=== PATIENT | female | born 1940 | race Caucasian/White ===

== ENCOUNTER 2023-12-01 11:03 | Inpatient (IN) | payer OTHER ==
[~2023-12-01] VITALS: Ht 165.1 cm; Wt 87.2 kg
[~2023-12-01 11:03] MED LIST: Zofran4 MG PO
[2023-12-01] MEDS ORDERED: Diltiazem HCl 5 MG / ML 5ML Vial IV ONE (11:20)
[2023-12-01] MEDS ORDERED: NS 1,000 ML IV SCH (11:25)
[2023-12-01 11:38] LABS: BASOPHILS ABSOLUTE AUTO 0.02 K/mm3 (0.00-0.23); BASOPHILS PERCENT AUTO 0 % (0-2); EOSINOPHILS ABSOLUTE AUTO 0.05 K/mm3 (0.00-0.68); EOSINOPHILS PERCENT AUTO 1 % (0-6); Hematocrit 42.2 % (33.0-51.0); Hemoglobin 13.8 g/dL (11.5-16.0); IMMATURE GRAN ABSOLUTE AUTO 0.03 K/mm3 (0.00-0.10); IMMATURE GRAN PERCENT AUTO 0 % (0-1); LYMPHOCYTES ABSOLUTE AUTO 0.79 K/mm3 (0.84-5.20); LYMPHOCYTES PERCENT AUTO 8 % (21-46); MONOCYTES ABSOLUTE AUTO 0.65 K/mm3 (0.16-1.47); MONOCYTES PERCENT AUTO 7 % (4-13); Mean Corpuscular HGB 28.9 pg (26.0-34.0); Mean Corpuscular HGB Conc 32.7 g/dL (31.5-36.5); Mean Corpuscular Volume 88 fL (80-100); Mean Platelet Volume 10.9 fL (9.1-12.4); NEUTROPHILS ABSOLUTE AUTO 8.08 K/mm3 (1.96-9.15); NEUTROPHILS PERCENT AUTO 84 % (41-73); Platelet Count 182 K/mm3 (150-400); RDW Coefficient Variation 13.2 % (11.7-14.2); RDW Standard Deviation 42.9 fL (35.1-46.3); Red Blood Cell Count 4.78 M/mm3 (3.80-5.20); White Blood Cell Count 9.62 K/mm3 (4.00-11.30)
[2023-12-01 12:06] LABS: Bun/Creatinine Ratio 16.3 (12.0-20.0); Calcium, Blood 9.4 mg/dL (8.5-10.1); Creatinine, Blood 0.92 mg/dL (0.40-1.00); Free Thyroxine 0.85 ng/dL (0.70-1.60); Magnesium, Blood 2.2 mg/dL (1.6-2.4); Potassium, Blood 4.5 mmol/L (3.5-5.5); Thyroid Stimulating Hormone 6.31 uIU/mL (0.360-4.800)
[2023-12-01] MEDS ORDERED: FLU VACC TS2024-25(6MOS UP)/PF 45 MCG/0.5 ML SYRINGE IM SCH (15:35)
[2023-12-01] MEDS ORDERED: Acetaminophen 500 MG Tab PO PRN (15:35)
[2023-12-01] MEDS ORDERED: Polyethylene Glycol 3350 17 gm PO PRN (15:40)
[2023-12-01] MEDS ORDERED: Metoprolol Succinate 25 MG TABCR PO SCH (16:00)
[2023-12-01] MEDS ORDERED: Apixaban 5 MG Tab PO SCH (16:00)
[2023-12-01] MEDS ORDERED: Furosemide 10 MG / ML 2ML Vial IV ONE (16:00)
[2023-12-01 20:25] VITALS: BP 146/83
[2023-12-01] MEDS ORDERED: Docusate Sodium/Senna 1 Tab PO SCH (21:00)
[2023-12-01 23:11] VITALS: BP 133/64
[2023-12-02] VITALS (9 sets, daily range): BP systolic 92–158; BP diastolic 64–104
[2023-12-02 04:35] LABS: Hematocrit 39.4 % (33.0-51.0); Mean Corpuscular Volume 88 fL (80-100); Mean Platelet Volume 10.7 fL (9.1-12.4); Platelet Count 163 K/mm3 (150-400); RDW Coefficient Variation 13.2 % (11.7-14.2); RDW Standard Deviation 42.4 fL (35.1-46.3); Red Blood Cell Count 4.49 M/mm3 (3.80-5.20); White Blood Cell Count 7.94 K/mm3 (4.00-11.30)
[2023-12-02 04:52] LABS: Albumin, Blood 3.4 g/dL (3.4-5.0); Anion Gap 13 mmol/L (3-11); Blood Urea Nitrogen 14 mg/dL (8-24); Bun/Creatinine Ratio 15.1 (12.0-20.0); CO2, Blood 24 mmol/L (21-32); Calcium, Blood 8.9 mg/dL (8.5-10.1); Chloride, Blood 106 mmol/L (98-108); Creatinine, Blood 0.93 mg/dL (0.40-1.00); Glomerular Filtration Rate 61 (60-); Glucose, Blood 110 mg/dL (70-99); Phosphorus, Blood 3.3 mg/dL (2.5-4.9); Potassium, Blood 3.9 mmol/L (3.5-5.5); Sodium, Blood 139 mmol/L (136-145)
--- NOTE | 2023-12-02 05:15 | NUR ---
SHIFT SUMMARY ASSUMED CARE OF PT AT 1999. PT FROM ED ON A DILTIAZEM GTTS AT 5MG/HR RUNNING AFIB ON THE MONITOR. PT A&O4 AND COOPERATIVE IN COMPLETING ADMISSION QUESTIONS. PT STATES SHE ONLY TAKE OTC MEDS AND HASN'T SEEN A PCP IN MANY YEARS. NEEDED TO RE-EDUCATE THE PT ON USING CALL LIGHT WHEN NEEDING TO GET OUT OF BED, PT STATES OK AND GETS UP AGAIN WITHOUT CALLLING FOR ASSISTANCE. DILT GTTS STOPPED WHEN PT'S HR MAINTAINED BELOW 100; HR RANGING FOR 90S-60S STILL IN AFIB. PT BED IN LOWEST POSITION, BED ALARM ON AND CALL LIGHT WITHIN REACH.
[2023-12-02] MEDS ORDERED: dilTIAZem HCL 30 MG TAB PO PRN (07:55)
--- NOTE | 2023-12-02 08:04 | NUR ---
DR. GAN NOTIFIED OF PATIENT'S INCREASED HR THIS MORNING. ORDERS GIVEN
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
[2023-12-03] VITALS (8 sets, daily range): BP systolic 118–162; BP diastolic 84–111
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
[2023-12-03] MEDS ORDERED: Metoprolol Succinate 25 MG TABCR PO STA (11:13)
[2023-12-03] MEDS ORDERED: Furosemide 20 MG Tab PO SCH (12:00)
--- NOTE | 2023-12-03 12:47 | NUR ---
ASSUMPTION OF CARE PT ALERT AND ORIENTED, SHE IS FORGETFUL AT TIMES, COOPERATIVE TO CARE, SBA FOR WEAKNESS. SKIN INTACT, NO BREAKDOWN NOTED. PIV OF RIGHT FA, S/L. HR IN THE 80'S-90'S, AFIB, SBP IN THE 150'S, MEDICATING PER EMAR, SHE DENIES CP/PRESSURE, NUMB/TINGLING. PT WITH SOB THIS AM, O2 95-100% ON RA. +BS. NO TENDERNESS. PT WITH GENRALIZED WEAKNESS, SBA. SHE IS ABLE TO EXPRESS NEEDS. PT DOES NOT HAVE ANY QUESTIONS OR CONCERNS AT THIS TIME. WILL MONITOR PT.
--- NOTE | 2023-12-03 18:16 | NUR ---
SHIFT SUMMARY: PT ALERT AND ORIENTED, COOPERARATIVE TO CARE. HR IN 90'S-100S, SBP 150'S, MEDICATING PER EMAR. SOB INCREASING, PROVIDER NOTIFIED LASIX ORDERED AND GIVEN. PROVIDER AT BEDSIDE THIS AFTERNOON TO DISCUSS PLAN OF CARE WITH PT. PTS FAMILY AT BEDSIDE AND ON THE PHONE WITH PROVIDER AT BEDSIDE. ANTICIPATING ATLEAST ONE MORE NIGHTS STAY TO MONITOR MEDICATIONS. PT AGREEABLE TO PLAN. NO ACUTE CHANGES THROUGH SHIFT. WILL CONTIUE TO MONITOR AND REPORT TO CARPET INSPECTOR FINISHED RN.
[2023-12-03] MEDS ORDERED: Calcium Carbonate 500 MG Tab Chew PO PRN (20:50)
[2023-12-04 03:53] VITALS: BP 155/109
[2023-12-04 04:22] LABS: Hematocrit 38.7 % (33.0-51.0); Hemoglobin 13.2 g/dL (11.5-16.0); Mean Corpuscular HGB 28.9 pg (26.0-34.0); Mean Corpuscular HGB Conc 34.1 g/dL (31.5-36.5); Mean Corpuscular Volume 85 fL (80-100); Mean Platelet Volume 11.1 fL (9.1-12.4); Platelet Count 176 K/mm3 (150-400); RDW Coefficient Variation 12.8 % (11.7-14.2); Red Blood Cell Count 4.57 M/mm3 (3.80-5.20)
[2023-12-04 04:47] LABS: Magnesium, Blood 1.7 mg/dL (1.6-2.4)
[2023-12-04 05:36] LABS: Albumin, Blood 3.7 g/dL (3.4-5.0); Anion Gap 16 mmol/L (3-11); Blood Urea Nitrogen 14 mg/dL (8-24); Bun/Creatinine Ratio 18.8 (12.0-20.0); CO2, Blood 19 mmol/L (21-32); Calcium, Blood 9.3 mg/dL (8.5-10.1); Chloride, Blood 99 mmol/L (98-108); Creatinine, Blood 0.75 mg/dL (0.40-1.00); Glomerular Filtration Rate 79 (60-); Glucose, Blood 155 mg/dL (70-99); Potassium, Blood 3.9 mmol/L (3.5-5.5); Sodium, Blood 130 mmol/L (136-145)
--- NOTE | 2023-12-04 06:22 | NUR ---
END OF SHIFT NOTE: NO ACUTE OVERNIGHT EVENTS. PT A/OX3-4 BUT WAKES UP CONFUSED AT TIMES, EASILY REORIENTED BY STAFF. PLEASANT & COOPERATIVE W/ CARE. VSS. HR 80-110'S, AFLUTTER ON TELE. SBP 120-150'S, DENIES CHEST PAIN/PRESSURE. SPO2 >90% ON RA, RESPIRATIONS EVEN & UNLABORED. AFEBRILE. UP TO VOID FREQUENTLY OVERNIGHT W/ SBA. TOLERATING PO INTAKE WELL. NO OTHER NEEDS AT THIS TIME. CALL LIGHT IN REACH, BED/CHAIR ALARM ON FOR PT SAFETY.
[2023-12-04 07:20] VITALS: BP 153/113
--- NOTE | 2023-12-04 07:38 | NUR ---
UPDATE PT AWAKE AND ALERT THIS AM SITTING UP IN THE CHAIR. PT STATES SHE FEELS GROGGY THIS AM AND DID NOT GET MUCH SLEEP. PT REQUESTS TO GET BACK IN TO BED AND SLEEP FOR A WHILE. PT MEDICATED WITH AM MEDS EARLY REQUESTED AND ASSISTED BACK TO BED. WILL CONTINUE PLAN OF CARE
[2023-12-04] MEDS ORDERED: Lisinopril 5 MG Tab PO SCH (09:00)
[2023-12-04] MEDS ORDERED: Metoprolol Succinate 25 MG TABCR PO SCH (09:00)
[2023-12-04] MEDS ORDERED: Metoprolol Succinate 50 MG TABCR PO ONE (10:20)
[2023-12-04 10:46] VITALS: BP 125/79
[2023-12-04] MEDS ORDERED: ELIQUIS5 M2 PO (15:54)
[2023-12-04] MEDS ORDERED: Calcium Carbon500 MG PO (15:55)
[2023-12-04] MEDS ORDERED: DOCUZEN 8.6-501 EACH PO (15:57)
[2023-12-04] MEDS ORDERED: FURO20 PO (15:57)
[2023-12-04] MEDS ORDERED: LISI5 PO (15:57)
[2023-12-04] MEDS ORDERED: METO50ER PO (15:58)
[2023-12-04 16:00] VITALS: BP 108/88
--- NOTE | 2023-12-04 16:10 | NUR ---
DISCHARGE PT AND DAUGHTER PROVIDED DISCHARGE INSTRUCTIONS. EDUCATED ON ALL NEW MEDICATIONS AND WEIGHT MONITORING. ALL QUESTIONS ANSWERED. PT TAKEN OUT VIA WC
[2023-12-05] MEDS ORDERED: Metoprolol Succinate 50 MG TABCR PO SCH (09:00)
== END 2023-12-04 16:41 | disposition home health service (06) | DRG 291 ==
LOC: ER 11:03 → ERHOLD 15:31 → PCU 15:31
PROVIDERS: Emergency Medicine; Internal Medicine; ADMIT Internal Medicine
DX: I11.0 Hypertensive heart disease with heart failure (principal); I50.31 Acute diastolic (congestive) heart failure; J90 Pleural effusion, not elsewhere classified; J98.11 Atelectasis; I48.91 Unspecified atrial fibrillation; G31.84 Mild cognitive impairment of uncertain or unknown etiology; I08.0 Rheumatic disorders of both mitral and aortic valves; I44.7 Left bundle-branch block, unspecified; R00.0 Tachycardia, unspecified; R06.02 Shortness of breath; I70.90 Unspecified atherosclerosis; M43.22 Fusion of spine, cervical region; Z88.1 Allergy status to other antibiotic agents; Z90.710 Acquired absence of both cervix and uterus; Z87.891 Personal history of nicotine dependence
CPT/HCPCS: 36415; 71045; 71046; 71260; 80048; 80053; 80069; 83735; 83880; 84439; 84443; 84484; 85025; 85027; 85379; 93005; 93010; 93306; 96361; 96374-59; 97110; 97116; 97161; 99285-25; A9270; J1940; J7030; Q9967

== ENCOUNTER 2023-12-05 19:53 | Emergency (ER) | payer OTHER ==
[~2023-12-05] VITALS: Ht 165.1 cm; Wt 83.5 kg
[~2023-12-05 19:53] MED LIST changes: +Calcium Carbon500 MG PO; +DOCUZEN 8.6-501 EACH PO; +ELIQUIS5 M2 PO; +FURO20 PO; +LISI5 PO; +METO50ER PO
[2023-12-05] MEDS ORDERED: Ondansetron HCl 2 MG / ML 2ML Vial IV ONE (20:10)
[2023-12-05 20:51] LABS: BASOPHILS ABSOLUTE AUTO 0.04 K/mm3 (0.00-0.23); BASOPHILS PERCENT AUTO 1 % (0-2); EOSINOPHILS ABSOLUTE AUTO 0.45 K/mm3 (0.00-0.68); EOSINOPHILS PERCENT AUTO 5 % (0-6); Hematocrit 37.6 % (33.0-51.0); IMMATURE GRAN ABSOLUTE AUTO 0.03 K/mm3 (0.00-0.10); IMMATURE GRAN PERCENT AUTO 0 % (0-1); LYMPHOCYTES ABSOLUTE AUTO 0.92 K/mm3 (0.84-5.20); LYMPHOCYTES PERCENT AUTO 11 % (21-46); MONOCYTES ABSOLUTE AUTO 0.75 K/mm3 (0.16-1.47); MONOCYTES PERCENT AUTO 9 % (4-13); Mean Corpuscular HGB 29.2 pg (26.0-34.0); Mean Corpuscular HGB Conc 34.6 g/dL (31.5-36.5); Mean Corpuscular Volume 85 fL (80-100); Mean Platelet Volume 11.2 fL (9.1-12.4); NEUTROPHILS ABSOLUTE AUTO 6.19 K/mm3 (1.96-9.15); NEUTROPHILS PERCENT AUTO 74 % (41-73); Platelet Count 165 K/mm3 (150-400); RDW Coefficient Variation 12.8 % (11.7-14.2); RDW Standard Deviation 38.4 fL (35.1-46.3); Red Blood Cell Count 4.45 M/mm3 (3.80-5.20); White Blood Cell Count 8.38 K/mm3 (4.00-11.30)
[2023-12-05 21:31] LABS: Albumin, Blood 3.4 g/dL (3.4-5.0); Albumin/Globulin Ratio 1.3 (0.8-1.8); Bilirubin, Total 0.6 mg/dL (0.1-1.0); Bun/Creatinine Ratio 19.1 (12.0-20.0); Calcium, Blood 8.8 mg/dL (8.5-10.1); Creatinine, Blood 0.84 mg/dL (0.40-1.00); Globulin, Blood 2.6 g/dL (2.2-4.0)
[2023-12-05 23:30] VITALS: BP 132/77
== END 2023-12-05 23:30 | disposition home or self-care (01) ==
LOC: ER 19:53
PROVIDERS: Student in an Organized Health Care Education/Training Program
DX: R07.89 Other chest pain (principal); R19.7 Diarrhea, unspecified; I50.9 Heart failure, unspecified; I48.91 Unspecified atrial fibrillation; Z88.8 Allergy status to other drugs, medicaments and biological substances; Z79.01 Long term (current) use of anticoagulants; Z79.899 Other long term (current) drug therapy
CPT/HCPCS: 71045; 80053; 83880; 84484; 85025; 93005; 93010; 99284-25

== ENCOUNTER → 2023-12-25 | Outpatient (CLI) | payer OTHER ==
[2023-12-26 12:23] LABS: Campylobacter Sp Not Detected (NOT DETECT); Enteroaggregative E. coli-EAEC Not Detected (NOT DETECT); Enteropathogenic E. coli-EPEC Not Detected (NOT DETECT); Enterotoxigenic E. coli-ETEC Not Detected (NOT DETECT); Plesiomonas Shigelloides Not Detected (NOT DETECT); Salmonella Sp Not Detected (NOT DETECT); Shiga Toxin-prod E. coli-STEC Not Detected (NOT DETECT); Yersinia Enterocolitica Not Detected (NOT DETECT)
[2023-12-26 12:24] LABS: Adenovirus F 40/41 Not Detected (NOT DETECT); Astrovirus Not Detected (NOT DETECT); Cryptosporidium Not Detected (NOT DETECT); Cyclospora Cayetanensis Not Detected (NOT DETECT); E. Coli O157 Not Detected (NOT DETECT); Entamoeba Histolytica Not Detected (NOT DETECT); Giardia Lamblia Not Detected (NOT DETECT); Norovirus GI/GII Not Detected (NOT DETECT); Rotavirus A Not Detected (NOT DETECT); Sapovirus Not Detected (NOT DETECT); Shigella/Enteroin E. coli-EIEC Not Detected (NOT DETECT)
== END ==
LOC: LAB SHORT 07:00 → LAB 07:00 → LAB SHORT 12-26 07:21
PROVIDERS: Family Medicine
DX: R19.7 Diarrhea, unspecified (principal)
CPT/HCPCS: 87507

== ENCOUNTER → 2023-12-25 | Outpatient (CLI) | payer OTHER | LOC: LAB SHORT 11:33 → LAB 11:33 | DX: R82.81 Pyuria (principal) | CPT/HCPCS: 87077; 87086; 87186 ==